=== PATIENT | female | born 1945 | race African-American/Black ===

== ENCOUNTER 2020-09-13 06:46 | Day surgery (SDC) | payer MEDICARE, BC ==
--- NOTE | 2020-09-10 10:54 | HP ---
PATIENT: BRYON ELIZABETH MEDICAL RECORD: [id number] ACCOUNT: [id number] LOCATION:[facility] : 45 ADMISSION DATE: 09/13/20 PCP: BRAD BROOKE MD HISTORY AND PHYSICAL EXAMINATION HISTORY OF PRESENT ILLNESS: Ms. Elizabeth is 74, she has a chronically infected totally opacified left maxillary sinus with some expansion of the sinus. She has been admitted for left middle meatal antrostomy, turbinate reduction, left anterior ethmoidectomy. PAST MEDICAL HISTORY: Includes hypertension, coronary artery disease, hypothyroidism, reactive airway disease, reflux. PAST SURGICAL HISTORY: Includes thyroidectomy. CURRENT MEDICATIONS: Nifedipine, Synthroid, omeprazole, losartan, atenolol, polyethylene glycol. ALLERGIES: CODEINE. PHYSICAL EXAMINATION: GENERAL: She is healthy appearing. FACE: Normal, symmetric. EYES: Sclerae and conjunctivae are normal. EARS: Canals and TMs normal. NOSE: Left side turbinate and lateral nasal wall are expanded up against to the septum. There is purulent drainage from the middle meatus. ORAL CAVITY AND OROPHARYNX. Tongue is midline. Pharynx is normal. NECK: No masses, no adenopathy. CHEST: Clear. CARDIOVASCULAR: Regular rate and rhythm, no murmur. EXTREMITIES: Normal. IMPRESSION: Left maxillary sinusitis and anterior ethmoid sinusitis as well, nasal obstruction. She has got an appointment to see a dentist, [facility] is a possibility. She will be admitted for left middle meatal antrostomy, left anterior ethmoidectomy and left inferior turbinate reduction. 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
[~2020-09-13] VITALS: Ht 170.2 cm; Wt 82.6 kg
[~2020-09-13 06:46] MED LIST: ACETAMINOPHEN500 M1 PO; GAVILAX510 GM PO; LEVOXYL100 MCG PO; LOSARTAN-HCTZ1 EAC1 PO; NIFEDIPINE ER 60 MG PO; OMEPRAZOLE20 M1 PO; TENORMIN100 MG PO
[2020-09-13 07:07] LABS: BASOPHILS 0.4 % (0-2); EOSINOPHILS 2.4 % (0-7); HEMATOCRIT 41.7 % (36.0-48.0); HEMOGLOBIN 13.8 g/dL (12-16); IMMATURE GRANULOCYTES 0.4 % (0-5); LYMPHOCYTE ABS# 1.61 10x3/uL (1.18-3.74); LYMPHOCYTES 31.9 % (15-50); MCHC 33.1 g/dL (31.0-37.0); MCV 90.7 fL (80.0-100.0); MEAN PLATELET VOLUME 10.7 fL (7.4-10.4); NEUTROPHIL ABS# 2.42 10x3/uL (1.56-6.13); NEUTROPHILS 47.9 % (40-80); PLATELET COUNT 283 10x3/uL (130-400); WBC 5.1 10x3/uL (4.8-10.8)
[2020-09-13 07:09] LABS: ANION GAP 16.1 mmol/L (8-16); CALCIUM 9.4 mg/dL (8.5-10.1); CARBON DIOXIDE 23.4 mmol/L (21.0-32.0); CREATININE - SERUM 2.2 mg/dL (0.6-1.3); POTASSIUM - SERUM 3.5 mmol/L (3.5-5.1)
[2020-09-13 08:08] VITALS: BP 124/77; Ht 170.2 cm; Wt 82.6 kg
--- NOTE | 2020-09-13 11:15 | NUR ---
IV D/C'D WITH TIP INTACT. DISCHARGE INSTRUCTIONS GIVEN TO PATIENT AND HER DAUGHTER. BOTH VOICED UNDERSTANDING.
--- NOTE | 2020-09-13 11:54 | NUR ---
DISCHARGED TO PRIVATE CAR VIA WHEELCHAIR.
--- NOTE | 2020-09-13 13:16 | OP ---
PATIENT NAME: BRYON HARGROVE MEDICAL RECORD: [id number] :45 LOCATION:[facility] ADMISSION DATE: SURGEON: TRIP COMER MD DATE OF OPERATION: 09/13/2020 PREOPERATIVE DIAGNOSES: Left chronic maxillary sinusitis, left nasal obstruction, left ethmoid sinusitis. POSTOPERATIVE DIAGNOSES: Left chronic maxillary sinusitis, left nasal obstruction, left ethmoid sinusitis. PROCEDURE: Left endoscopic middle meatal antrostomy, left anterior ethmoidectomy, left inferior turbinate reduction. SURGEON: Trip Comer MD ANESTHESIA: General orotracheal. ESTIMATED BLOOD LOSS: Less than mL. SPECIMEN: Cultures from the left maxillary sinus. COMPLICATIONS: None. NASAL PACKING: None. FINDINGS: Copious purulence left maxillary sinus and left anterior ethmoids. DESCRIPTION OF PROCEDURE: She was brought to the operating room and placed in supine position, sedated and intubated by anesthesia. The table was turned 90 degrees. Head drape was applied. She was positioned, prepped and draped for sinus surgery. Nose was examined using a headlight and nasal speculum. The right side looked normal. A single Afrin pledget was placed in there. Left side, even after being decongested with Afrin preoperatively, total nasal obstruction. Three Afrin pledgets were placed. The inferior turbinate was injected with less than mL of 1% lidocaine with 1:100,000 epinephrine, but the rest of the nose really could not be visualized. After awaiting for further decongestion, all the Afrin pledgets were removed. A 0-degree scope was inserted in the right side the nose. There was purulence in the nasopharynx, but the inferior middle turbinate with normal middle meatus, nasal vault and nasopharynx were all normal. Nasopharynx was suctioned. Then, the left side was examined. Inferior turbinate was outfractured slightly, just bulging lateral nasal wall, even more prominent in the middle turbinate. Copious purulence. Cultures were obtained with the swabs. Then, a curved olive tip suction was inserted into the maxillary sinus and a Luki trap was used to evacuate about 3 mL of foul-smelling dark yellow purulence. Once that was done, a microdebrider was inserted. Used to take down that area where the uncinate was just boggy, swollen and protruding into the nasal cavity. Once that was done, the sinus opened up. The sinus decompressed. Rest of the contents were suctioned out. Anterior ethmoid cavity was taken down as well. The middle turbinate was already maximally medialized just by the pressure from that sinus. That would open up the sinus nicely. The ostia opened up the ethmoids and then suctioned out the rest of the purulence with the curved olive tip suction and then irrigated repeatedly with a 60 mL syringe with saline, more than a dozen times got everything completely cleaned out. I examined the sinus with angled OPERATIVE REPORT [id number] BRYON HARGROVE scopes and then it was just some granular kind of inflamed changes in the mucosa. Then, the inferior turbinate was taken down with the microdebrider, somewhat taken down some of the excess polypoid changes and then suction cautery was used to stop any bleeding. It was outfractured with the [place] elevator to give her a good nasal airway. The sinus was irrigated again and then it was clean and dry. Mupirocin ointment was placed in the maxillary sinus. Good airway. Nasopharynx was suctioned. She was awakened, extubated, and transported to recovery in good condition. No complications. 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
[2020-09-14 15:12] LABS: ACID FAST SMEAR Negative (()); AFB SPECIMEN PROCESSING Concentration (())
[2020-09-15 14:11] LABS: FUNGUS STAIN Final report (())
== END 2020-09-13 10:37 | disposition home or self-care (01) ==
LOC: D.OPS 06:46
PROVIDERS: Anesthesiology; ATTEND Otolaryngology
DX: J32.0 Chronic maxillary sinusitis (principal); J34.89 Other specified disorders of nose and nasal sinuses; J32.2 Chronic ethmoidal sinusitis; I10 Essential (primary) hypertension; I25.10 Atherosclerotic heart disease of native coronary artery without angina pectoris; E03.9 Hypothyroidism, unspecified; J45.909 Unspecified asthma, uncomplicated; K21.9 Gastro-esophageal reflux disease without esophagitis